=== PATIENT | female | born 1980 | race African-American/Black ===

== ENCOUNTER 2016-08-28 09:03 | Emergency (ER) | payer OTHER ==
[2016-08-28 09:07] VITALS: BP 138/80; PULSE 82; TEMP 98.1; BMI 32.3
--- NOTE | 2016-08-28 09:43 | PDOC ---
History of Present Illness - General Chief Complaint: Vaginal Sxs Stated Complaint: DISCHARGE Time Seen by Provider: 08/28/16 09:16 History Source: Patient Exam Limitations: No Limitations - History of Present Illness Initial Comments: 08/28/16 09:38 Patient came for evaluation of vaginal drainage and foul smell. States used a douche and feels has bacterial vaginosis. Patient states has chronic urinary issues and is adamant about not giving a urine sample for any other evaluation. Lengthy explanation given to patient about the need for urinalysis to evaluate for , for electrolyte imbalances, changes in glucose and potential other infectious diseases however patient insists that she gave a urine sample 2 weeks ago and does not feel the need to repeat a urinalysis today. "I don't want my insurance to pay for another urine test", "I know what I have, and I don 't think I need to have another urine test". Patient stated did not wish to stay and she was tired post ambulance shift and that she would go see her doctor or oo to a different hospital. 08/28/16 18:01 Timing/Duration: unsure Past History - Past Medical History Allergies/Adverse Reactions: Allergies Allergy/AdvReac Type Severity Reaction Status Date / Time No Known Allergies Allergy Verified 08/28/16 09:04 Home Medications: Ambulatory Orders Clotrimazole [Mycelex -] 10 mg PO 5XD #35 miguel 04/19/16 Oxybutynin Chloride [Oxybutynin Chloride ER] 15 mg PO DAILY 04/19/16 Pentosan Polysulfate Sodium [Elmiron] 100 mg PO DAILY 04/19/16 Other medical history: denies. - Family Disease History Family Disease History: Diabetes: Grandparents - Reproductive History (#): 4 Para: 2 - Immunization History Immunization Up to Date: Yes - Psycho/Social/Smoking Cessation Hx Anxiety: No Suicidal Ideation: No Smoking Status: No Smoking History: Current some day smoker Have you smoked in the past 12 months: Yes Number of Cigarettes Smoked Daily: 3 Information on smoking cessation initiated: No 'Breaking Loose' booklet given: 10/09/13 Hx Alcohol Use: Yes (OCCASIONALLY) Drug/Substance Use Hx: No Substance Use Type: None *Physical Exam - Vital Signs Last Vital Signs Temp Pulse Resp BP Pulse Ox 98.1 F 82 19 138/80 100 08/28/16 09:04 08/28/16 09:04 08/28/16 09:04 08/28/16 09:04 08/28/16 09:04 *DC/Admit/Observation/Transfer Diagnosis at time of Disposition: Eloped - Discharge Dispostion Disposition: ELOPED - Referrals Referrals: Nolberto Flores [Primary Care Provider] -
== END 2016-08-28 09:25 | disposition left against medical advice (07) ==
LOC: JERFT 09:03
DX: Z53.21 Procedure and treatment not carried out due to patient leaving prior to being seen by health care provider (principal)
CPT/HCPCS: 99281-25

== ENCOUNTER 2017-07-29 16:48 | Emergency (ER) | payer OTHER ==
--- NOTE | 2017-07-29 17:11 | PDOC ---
Rapid Medical Evaluation Time Seen by Provider: 07/29/17 17:09 Medical Evaluation: Allergies Allergy/AdvReac Type Severity Reaction Status Date / Time No Known Allergies Allergy Verified 08/28/16 09:04 07/29/17 17:09 Pt presents to the ED: left suprapubic pain, , currently menstrating, denies , mild dysuria Pt on brief exam: vss Pt ordered for: ua, hcg urine Pt to proceed to the ED Discharge Disposition - Diagnosis Suprapubic abdominal pain - Referrals - Patient Instructions - Post Discharge Activity
[2017-07-29 17:16] VITALS: BP 116/76; PULSE 68; TEMP 98.3; BMI 30.8
[2017-07-29 18:05] LABS: URINE APPEARANCE CLEAR; URINE BILIRUBIN NEGATIVE (NEGATIVE); URINE BLOOD 3+ (NEGATIVE); URINE COLOR LTYELLOW; URINE GLUCOSE (UA) NEGATIVE (NEGATIVE); URINE KETONE NEGATIVE (NEGATIVE); URINE NITRITE NEGATIVE (NEGATIVE); URINE PROTEIN NEGATIVE (NEGATIVE); URINE UROBILINOGEN NEGATIVE mg/dL (0.2-1.0)
[2017-07-29 18:07] LABS: URINE LEUK ESTERASE 1+ (NEGATIVE)
[2017-07-29 18:08] LABS: HCG,QUALITATIVE URINE NEGATIVE
[2017-07-29 18:09] LABS: EPI CELLS RARE /HPF (FEW); URINE MUCUS RARE
--- NOTE | 2017-07-29 19:23 | PDOC ---
History of Present Illness - General Chief Complaint: Pain, Acute Stated Complaint: CYST Time Seen by Provider: 07/29/17 17:09 History Source: Patient Exam Limitations: No Limitations - History of Present Illness Travel History: No Initial Comments: 07/29/17 19:40 37-year-old female with a history of enlarged bladder presents to the emergency department complaining of 2/10 sore nonradiating intermittent left-sided suprapubic discomfort with urinary urgency/frequency 2 weeks without fever, chills, nausea/vomiting, back pains, chest pain, shortness of breath, abdominal pains, flank pain. Patient denies hematuria or urinary hesitancy. Patient states she is not sexually active at this time. Patient states symptoms are similar to her previous UTI. Past History - Past Medical History Allergies/Adverse Reactions: Allergies Allergy/AdvReac Type Severity Reaction Status Date / Time No Known Allergies Allergy Verified 07/29/17 17:10 Home Medications: Ambulatory Orders Fluconazole [Diflucan] 150 mg PO ONCE #1 tablet 07/29/17 Nitrofurantoin Monohyd/M-Cryst [Macrobid -] 100 mg PO BID #14 capsule 07/29/17 - Family Disease History Family Disease History: Diabetes: Grandparents - Reproductive History (#): 4 Para: 2 - Immunization History Immunization Up to Date: Yes - Suicide/Smoking/Psychosocial Hx Smoking Status: No Smoking History: Current some day smoker Have you smoked in the past 12 months: Yes Number of Cigarettes Smoked Daily: 3 Information on smoking cessation initiated: No 'Breaking Loose' booklet given: 10/09/13 Hx Alcohol Use: Yes (OCCASIONALLY) Drug/Substance Use Hx: No Substance Use Type: None Abd/GI Specific PMHX - Complaint Specific PMHX Colitis: No Diverticulitis: No Gall Bladder Disease: No GERD: No Hepatitis: No Irritable Bowel Synd (IBS): No Pancreatitis: No GI Ulcer Disease: No Review of Systems - Review of Systems Able to Perform ROS?: Yes Comments:: 07/29/17 19:43 CONSTITUTIONAL: Absent: fever, chills, diaphoresis, generalized weakness, malaise, loss of appetite HEENT: Absent: rhinorrhea, nasal congestion, throat pain, throat swelling, difficulty swallowing, mouth swelling, ear pain, eye pain, visual Changes CARDIOVASCULAR: Absent: chest pain, loss of consciousness, palpitations, irregular heart rate, peripheral edema RESPIRATORY: Absent: cough, shortness of breath, dyspnea with exertion, orthopnea, wheezing, stridor, hemoptysis GASTROINTESTINAL: +left sided suprapubic tenderness x2 weeks Absent: abdominal pain, abdominal distension, nausea, vomiting, diarrhea, constipation, melena, hematochezia GENITOURINARY: Absent: dysuria, frequency, urgency, hesitancy, hematuria, flank pain, genital pain MUSCULOSKELETAL: Absent: myalgia, arthralgia, joint swelling SKIN: Absent: rash, itching, pallor HEMATOLOGIC/IMMUNOLOGIC: Absent: easy bleeding, easy bruising, lymphadenopathy, frequent infections Is the patient limited Slovenian proficient: No *Physical Exam - Vital Signs Last Vital Signs Temp Pulse Resp BP Pulse Ox 98.3 F 68 16 116/76 100 07/29/17 17:10 07/29/17 17:10 07/29/17 17:10 07/29/17 17:10 07/29/17 17:10 - Physical Exam Comments: 07/29/17 19:43 GENERAL: Well developed, well nourished. Awake and alert. No acute distress. HEENT: Normocephalic, atraumatic. PERRLA, EOMI. No conjunctival pallor. Sclera are non- icteric. Moist mucous membranes. Oropharynx is clear. NECK: Supple. Full ROM. No JVD. Carotid pulses 2+ and symmetric, without bruits. No thyromegaly. No lymphadenopathy. CARDIOVASCULAR: Regular rate and rhythm. No murmurs, rubs, or gallops. Distal pulses are 2+ and symmetric. PULMONARY: No evidence of respiratory distress. Lungs clear to auscultation bilaterally. No wheezing, rales or rhonchi. ABDOMINAL: Soft. Non-tender. Non-distended. No rebound or guarding. No organomegaly. Normoactive bowel sounds. MUSCULOSKELETAL Normal range of motion at all joints. No bony deformities or tenderness. No CVA tenderness. EXTREMITIES: No cyanosis. No clubbing. No edema. No calf tenderness. SKIN: Warm and dry. Normal capillary refill. No rashes. No jaundice. ED Treatment Course - ADDITIONAL ORDERS Additional order review: Laboratory Results 07/29/17 17:26 Urine Color Ltyellow Urine Appearance Clear Urine pH 6.0 Ur Specific [place] 1.027 Urine Protein Negative Urine Glucose (UA) Negative Urine Ketones Negative Urine Blood 3+ H Urine Nitrite Negative Urine Bilirubin Negative Urine Urobilinogen Negative Ur Leukocyte Esterase 1+ H Urine WBC (Auto) 7 Urine RBC (Auto) 106 Ur Epithelial Cells Rare Urine Mucus Rare Urine HCG, Qual Negative - RADIOLOGY Radiology Studies Ordered: Category Date Time Status TRANSVAGINAL ULTRASOUND US [US] Stat Ultrasound 07/29/17 19:16 Ordered Radiograph Interpretation: 07/29/17 19:43 Transvaginal US: Small uterine leiomyomas *DC/Admit/Observation/Transfer Diagnosis at time of Disposition: Suprapubic abdominal pain, UTI (urinary tract infection) - Discharge Dispostion Disposition: HOME Condition at time of disposition: Stable Admit: No - Prescriptions Prescriptions: Nitrofurantoin Monohyd/M-Cryst [Macrobid -] 100 mg PO BID #14 capsule - Referrals Referrals: Nolberto Flores [Primary Care Provider] - Jeff Moore MD [Staff Physician] - - Patient Instructions Printed Discharge Instructions: DI for Uterine Fibroids, DI for Urinary Tract Infection (UTI) Additional Instructions: Pelvic rest Tylenol alternating with Hernandez as needed for pain Follow up with your magnetic prospecting supervisor or / Uli Follow up with the urologist/Dr. Eaton Return to the ER for severe/persistent/worsening symptoms - Post Discharge Activity
== END 2017-07-29 20:22 | disposition home or self-care (01) ==
LOC: JER 16:48 → JERFT 16:48
DX: N39.0 Urinary tract infection, site not specified (principal); D25.9 Leiomyoma of uterus, unspecified
CPT/HCPCS: 76830-TC; 81003; 81015; 84703; 87086; 99281-25

== ENCOUNTER 2018-03-27 09:05 | Emergency (ER) | payer OTHER ==
[2018-03-27 09:11] VITALS: BP 116/71; PULSE 78; TEMP 99.3; BMI 30.8
--- NOTE | 2018-03-27 09:51 | PDOC ---
History of Present Illness - General Chief Complaint: Vaginal Sxs Stated Complaint: IRREGULAR VAGINAL DISCHARGE Time Seen by Provider: 03/27/18 09:49 History Source: Patient Exam Limitations: No Limitations - History of Present Illness Initial Comments: CHIEF COMPLAINT: 37 y/o afebrile female c/o white vaginal discharge for the past few weeks that was worse this morning. HISTORY OF PRESENT ILLNESS: The patient is also complaining of vaginal itching. She does admit to hx of BV and yeast infections. She denies fever, abnormal vaginal bleeding, foul odor to vaginal discharge. The patient's LMP was 03/10/18. She states she is sexually active recently and is unsure of . Vital signs on arrival are within normal limits. REVIEW OF SYSTEMS: GENERAL/CONSTITUTIONAL: No fever/chills. No weakness. No weight change. GASTROINTESTINAL: No abd pain, nausea, vomiting, diarrhea. +white vaginal discharge and itching GENITOURINARY: No dysuria, frequency, or change in urination. MUSCULOSKELETAL: No joint or muscle swelling or pain. No neck or back pain. SKIN: No rash or easy bruising. NEUROLOGIC: No headache, vertigo, loss of consciousness, or loss of sensation. PHYSICAL EXAM: GENERAL: The patient is awake, alert, and fully oriented, in no acute distress. She is well appearing and ambulatory. ABDOMEN: Soft, non-distended, non-tender even to deep palpation, no hepatomegaly or splenomegaly, no masses. VAGINAL: Minimal amount of thick white discharge at Os. No foul odors. No irritation to labia or vulva. EXTREMITIES: Normal range of motion, no edema. NEUROLOGICAL: Normal speech, normal gait. CN II-XII grossly intact. SKIN: Warm, dry, normal turgor, no rashes or lesions noted. Past History - Past Medical History Allergies/Adverse Reactions: Allergies Allergy/AdvReac Type Severity Reaction Status Date / Time No Known Allergies Allergy Verified 03/27/18 09:08 Home Medications: Ambulatory Orders NK [No Known Home Medication] 03/27/18 COPD: No - Family Disease History Family Disease History: Diabetes: Grandparents - Reproductive History (#): 4 Para: 2 - Immunization History Immunization Up to Date: Yes - Suicide/Smoking/Psychosocial Hx Smoking Status: No Smoking History: Former smoker Have you smoked in the past 12 months: No Number of Cigarettes Smoked Daily: 3 Information on smoking cessation initiated: No 'Breaking Loose' booklet given: 10/09/13 Hx Alcohol Use: Yes (OCCASIONALLY) Drug/Substance Use Hx: No Substance Use Type: None *Physical Exam - Vital Signs Last Vital Signs Temp Pulse Resp BP Pulse Ox 99.3 F 78 16 116/71 99 03/27/18 09:10 03/27/18 09:10 03/27/18 09:10 03/27/18 09:10 03/27/18 09:10 Medical Decision Making - Medical Decision Making A/P: 37 y/o female with signs and symptoms of yeast infection although not sure of . Will send hcg and genital cultures. Patient cannot wait for results and would like a call. The patient verbalizes understanding of all instructions, has no further questions and is awaiting discharge. *DC/Admit/Observation/Transfer Diagnosis at time of Disposition: Vaginal discharge - Discharge Dispostion Disposition: HOME Condition at time of disposition: Good - Referrals - Patient Instructions Printed Discharge Instructions: DI for Vaginal Discharge Additional Instructions: Discharge Instructions: -Your urine and cultures have been sent to the lab -You will receive a call with the results -Return to the ER with any worsening or concerning symptoms - Post Discharge Activity Forms/Work/School Notes: Back to Work
== END 2018-03-27 10:50 | disposition home or self-care (01) ==
LOC: JERFT 09:05
DX: N89.8 Other specified noninflammatory disorders of vagina (principal); Z87.42 Personal history of other diseases of the female genital tract
CPT/HCPCS: 84703; 87070; 87205; 99281-25

== ENCOUNTER 2023-01-24 05:34 | Day surgery (SDC) | payer OTHER ==
[2023-01-18 13:56] VITALS: BMI 34.9
[2023-01-24] MEDS ORDERED: LIDOCAINE HCL 2% JELLY 10 ML CARTRIDGE ONE (11:09)
[2023-01-24 11:39] VITALS: TEMP 98
[2023-01-24] MEDS ORDERED: ACETAMINOPHEN INJECTION 100 ML IVPB ONE (11:40)
[2023-01-24 12:17] VITALS: PULSE 77
[2023-01-24 14:03] VITALS: BP 105/64; RESP 24
== END 2023-01-24 12:55 | disposition home or self-care (01) ==
LOC: JASU-ENDO 05:34
PROVIDERS: ATTEND Internal Medicine Gastroenterology
PROC: 06LY8CC Occlusion of Hemorrhoidal Plexus with Extraluminal Device, Via Natural or Artificial Opening Endoscopic (ICD-10-PCS; principal; 2023-01-24 09:30)
DX: K64.1 Second degree hemorrhoids (principal); K62.5 Hemorrhage of anus and rectum
CPT/HCPCS: 81025

== ENCOUNTER 2023-01-31 18:16 | Emergency (ER) | payer OTHER ==
[2023-01-31 18:24] VITALS: BP 121/82; PULSE 91; RESP 18; TEMP 98.2; BMI 35.9
[2023-01-31 19:52] LABS: EPI CELLS 6 /uL (0-25.1); HCG,QUALITATIVE URINE Negative; HYALINE CASTS 0 /uL (0-3.1); PH,URINE 5.5 (5.0-8.0); URINE APPEARANCE CLEAR; URINE BACTERIA 19 /uL (0-1359); URINE BILIRUBIN NEGATIVE (NEGATIVE); URINE COLOR YELLOW; URINE GLUCOSE (UA) NEGATIVE (NEGATIVE); URINE KETONE NEGATIVE (NEGATIVE); URINE LEUK ESTERASE NEGATIVE (NEGATIVE); URINE NITRITE NEGATIVE (NEGATIVE); URINE PROTEIN NEGATIVE (NEGATIVE); URINE RBC 11 /uL (0-23.9); URINE UROBILINOGEN 0.2 mg/dL (0.2-1.0); URINE WBC 3 /uL (0-25.8)
== END 2023-01-31 20:29 | disposition home or self-care (01) ==
LOC: JERFT 18:16
DX: H61.23 Impacted cerumen, bilateral (principal); H93.8X3 Other specified disorders of ear, bilateral; R51.9 Headache, unspecified; R30.0 Dysuria
CPT/HCPCS: 36415; 81003; 84703; 87070; 87086; 87205; 87491; 87591; 99283-25